=== PATIENT | female | born 1955 | race Caucasian/White ===

== ENCOUNTER 2021-12-29 18:31 | Emergency (ER) | payer BC, OTHER ==
[2021-12-29 18:50] VITALS: BP 156/81; PULSE 76; TEMP 99.5; BMI 22.2
== END 2021-12-29 19:51 | disposition home or self-care (01) ==
LOC: FER 18:31
DX: S62.102A Fracture of unspecified carpal bone, left wrist, initial encounter for closed fracture (principal)
CPT/HCPCS: 73110-TC-LT-FY; 73130-TC-LT-FY; 99284-25